=== PATIENT | male | born 1980 | race Caucasian/White ===

== ENCOUNTER 2020-12-08 11:45 | Day surgery (SDC) | payer OTHER ==
[2020-12-08] MEDS ORDERED: Depo-Medrol 40 MG/ML IM ONE (11:46)
[2020-12-08] MEDS ORDERED: Sodium Chloride 0.9(Preservative Free) 10 ML IJ ONE (11:46)
[2020-12-08] MEDS ORDERED: DIPRIVAN 200 MG/20 ML IV ONE (14:28)
[2020-12-08] MEDS ORDERED: Lactated Ringers 1,000 ML IV ONE (16:36)
--- NOTE | 2020-12-08 16:38 | XRAY ---
Indication: Left L4-S1 transforaminal CIERRA. Intraoperative fluoroscopy provided for 27 seconds. Single digital spot image submitted for interpretation demonstrates posterior needle tips projecting over the expected left L4 and L5 nerve roots. Small amount of contrast injected for needle tip placement. Correlate with intraoperative findings/report.
--- NOTE | 2020-12-08 17:01 | XRAY ---
27 seconds fluoroscopy time in surgery for left L4-S1 transforaminal CIERRA.
== END 2020-12-08 15:05 | disposition home or self-care (01) ==
LOC: SDC-PAIN 11:45
PROVIDERS: ATTEND Psychiatry & Neurology Pain Medicine
DX: M54.16 Radiculopathy, lumbar region (principal); Z79.899 Other long term (current) drug therapy
CPT/HCPCS: 64483; 64484; 72020; 77003; J1030; J2704; Q9966